=== PATIENT | female | born 1970 | race Caucasian/White ===

== ENCOUNTER → 2018-12-31 | Outpatient (CLI) | payer SELFPAY ==
[2018-12-31 15:38] VITALS: BP 137/86; PULSE 84; RESP 18; TEMP 98.1; BMI 22.9
--- NOTE | 2018-12-31 16:11 | P.HPOB ---
History of Present Illness H&P Date: 12/31/18 Chief Complaint: The patient is here for her routine gynecologic exam and mammogram. This is a 48-year-old with an LMP of 12/07/2018. The patient is without gynecologic complaints. She states her menses are regular every month. She continues to use condoms for control. Review of Systems The patient's weight has been stable over the last year. She denies respiratory , cardiac, or G.I. problems. 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 History of Any Multi-Drug Resistant Organisms: None Reported Past Surgical History: Appendectomy Past Psychological History: Anxiety Smoking Status: Never smoker Past Alcohol Use History: None Reported Past Drug Use History: None Reported Additional History: She has been since 1993. 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 - Past Family History Mother Family Medical History: Dementia, Myocardial Infarction ([place]) Additional Family Medical History / Comment(s): Maternal aunt and cousin had breast cancer. Father Family Medical History: Hypertension Medications and Allergies Home Medications Medication Instructions Recorded Confirmed Type Multivitamin [Multivitamins Adult 1 each PO 12/31/18 History Gummies] Allergies Allergy/AdvReac Type Severity Reaction Status Date / Time No Known Allergies Allergy Unverified 12/31/18 15:33 Exam Vital Signs Temp Pulse Resp BP Pulse Ox 12/31/18 15:35 98.1 F 84 18 137/86 98 Intake and Output 12/31/18 12/31/18 12/31/18 06:59 14:59 22:59 Other: Weight 62.596 kg Height 5'5", weight 138 pounds, BMI 23.0. This is a well-developed well-nourished female who is alert and oriented times 3 in no acute distress. HEENT: Within normal limits. NECK: Supple without mass or thyromegaly. CHEST AND LUNGS: Clear to auscultation. HEART: Regular rate and rhythm. BREASTS: Are without mass or discharge. AXILLARY EXAM: Negative for adenopathy. BACK: Negative for CVA tenderness. ABDOMEN: Soft, nontender, without palpable masses. PELVIC EXAM: Normal external genitalia. Cervix and vagina appear normal. There is no unusual discharge. There is no evidence of prolapse. The uterus is mid to anterior, multiparous nongravid size and nontender. There are no palpable adnexal masses or tenderness. RECTAL EXAM: negative for mass or tenderness and is negative for occult blood. EXTREMITIES: Nontender. IMPRESSION: 1. 48-year-old female with normal gynecologic exam who uses condoms for control. PLAN: 1. Pap smear was performed. 2. Self breast awareness was discussed with the patient. 3. Screening mammogram will be done today. 4. The patient will keep a menstrual calendar and call if she is having menstrual irregularities or problems. 5. We have discussed the HPV vaccination for her daughters. She states she believes they have received this vaccination. 6. I have recommended that she check her blood pressure at home since she does have a blood pressure cuff. I have asked her to do this on a regular basis and to follow-up with Dr. Hart if she has blood pressure elevations. 7. She will return in one year for annual well woman exam.
--- NOTE | 2019-01-02 09:35 | MM ---
Reason for exam: screening (asymptomatic). Last mammogram was performed 2 years and 3 months ago. History: Family history of breast cancer in maternal cousin at age 29 and breast cancer in maternal aunt. Physical Findings: A clinical breast exam by your physician is recommended on an annual basis and results should be correlated with mammographic findings. MG Screening Mammo w CAD Bilateral CC and MLO view(s) were taken. Prior study comparison: September 26, 2016, bilateral MG screening mammo w CAD. September 08, 2015, bilateral MG screening mammo w CAD. The breast tissue is extremely dense which could obscure a lesion on mammography. No significant changes when compared with prior studies. ASSESSMENT: Benign, BI-RAD 2 RECOMMENDATION: Routine screening mammogram of both breasts in 1 year.
== END ==
LOC: WWCWWP 15:22
PROVIDERS: ATTEND Obstetrics & Gynecology
DX: Z12.31 Encounter for screening mammogram for malignant neoplasm of breast (principal)
CPT/HCPCS: 77067

== ENCOUNTER → 2020-06-29 | Outpatient (CLI) | payer OTHER ==
[2020-06-29 15:34] VITALS: BP 127/81; PULSE 103; RESP 12; TEMP 99.2
--- NOTE | 2020-06-29 16:24 | P.HPOB ---
History of Present Illness H&P Date: 06/29/20 Chief Complaint: The patient is here for her routine gynecologic exam and ma mmogram. This is a 50-year-old with an LMP of 05/26/2020. She has been using condoms for control. She states her menstrual periods have gotten slightly less predictable are typically monthly give or take 1 week. She states the menstrual flow is fairly normal when she does have the menstrual period. She denies hot flashes. She is without gynecologic complaints. Review of Systems The patient's weight has been stable over the last year. She denies respiratory, cardiac, or G.I. problems. 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 History of Any Multi-Drug Resistant Organisms: None Reported Past Surgical History: Appendectomy Past Psychological History: Anxiety Smoking Status: Never smoker Past Alcohol Use History: None Reported Past Drug Use History: None Reported Additional History: She is been since 1993. 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 - Past Family History Mother Family Medical History: Dementia, Myocardial Infarction ([place]) Additional Family Medical History / Comment(s): Maternal aunt and cousin had breast cancer. Father Family Medical History: Hypertension, Renal Disease Medications and Allergies Home Medications Medication Instructions Recorded Confirmed Type Multivitamin [Multivitamins Adult 1 each PO DAILY 12/31/18 06/29/20 History Gummies] Aspirin/Omeprazole 1 each PO DAILY 06/29/20 06/29/20 History [Aspirin-Omeprazole Dr 81-40 mg] Allergies Allergy/AdvReac Type Severity Reaction Status Date / Time No Known Allergies Allergy Unverified 12/31/18 15:33 Exam Vital Signs Temp Pulse Resp BP Pulse Ox 06/29/20 15:23 99.2 F 103 H 12 127/81 99 Intake and Output 06/29/20 06/29/20 06/29/20 06:59 14:59 22:59 Other: Weight 62.596 kg Height 5 feet 5 inches, weight 138 pounds, BMI 23.0. This is a well-developed well-nourished female who is alert and oriented times 3 in no acute distress. HEENT: Within normal limits. NECK: Supple without mass or thyromegaly. CHEST AND LUNGS: Clear to auscultation. HEART: Regular rate and rhythm. BREASTS: Are without mass or discharge. AXILLARY EXAM: Negative for adenopathy. BACK: Negative for CVA tenderness. ABDOMEN: Soft, nontender, without palpable masses. PELVIC EXAM: Normal external genitalia. Cervix and vagina appear normal. There is some clear mucus with a small amount of blood in it. She states she feels like she may be getting ready to start a menstrual period. There is no evidence of prolapse. The uterus is anterior, nongravid size and nontender. There are no palpable adnexal masses or tenderness. RECTAL EXAM: Rectovaginal exam is negative for mass or tenderness and is negative for occult blood. EXTREMITIES: Nontender. IMPRESSION: 1. 50-year-old premenopausal female using condoms with normal gynecologic exam. PLAN: 1. Pap smear was deferred since she had a normal one on 12/31/2018. 2. Self breast awareness was discussed with the patient. 3. Screening mammogram will be done today. 4. Osteoporosis prevention was discussed. I have stressed the importance of adequate calcium, vitamin D and regular exercise. Recommended amounts of calcium and vitamin D were also discussed. 5. We have discussed screening colonoscopy. She recently did a cologuard testing through her PCP with the results pending. 6. She was advised to return in one year for her annual well woman exam.
--- NOTE | 2020-06-30 12:01 | MM ---
Reason for exam: screening (asymptomatic). Last mammogram was performed 1 year and 6 months ago. History: Family history of breast cancer in maternal cousin at age 29 and breast cancer in maternal aunt. Physical Findings: A clinical breast exam by your physician is recommended on an annual basis and results should be correlated with mammographic findings. MG Screening Mammo w CAD Bilateral CC and MLO view(s) were taken. Prior study comparison: December 31, 2018, bilateral MG screening mammo w CAD. September 26, 2016, bilateral MG screening mammo w CAD. The breast tissue is heterogeneously dense. This may lower the sensitivity of mammography. No significant changes when compared with prior studies. ASSESSMENT: Benign, BI-RAD 2 RECOMMENDATION: Routine screening mammogram of both breasts in 1 year.
== END | disposition home or self-care (01) ==
LOC: WWCWWP 15:13
PROVIDERS: ATTEND Obstetrics & Gynecology
DX: Z12.31 Encounter for screening mammogram for malignant neoplasm of breast (principal)
CPT/HCPCS: 77067

== ENCOUNTER → 2021-08-02 | Outpatient (CLI) | payer OTHER ==
[2021-08-02 15:27] VITALS: BP 118/77; PULSE 92; RESP 16; TEMP 99.6
--- NOTE | 2021-08-02 16:13 | P.HPOB ---
History of Present Illness H&P Date: 08/02/21 Chief Complaint: The patient is here for her routine gynecologic exam and ma mmogram. This is a 51-year-old with an LMP of December 2020. The patient states her menstrual periods continue to space out and have become unpredictable. She denies any significant hot flashes. She is otherwise without complaints. Review of Systems The patient's weight has been stable over the last year. She denies respiratory, cardiac, or G.I. problems. 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 History of Any Multi-Drug Resistant Organisms: None Reported Past Surgical History: Appendectomy Past Psychological History: Anxiety Smoking Status: Never smoker Past Alcohol Use History: None Reported Past Drug Use History: None Reported Additional History: She has been since 1993. 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 - Past Family History Mother Family Medical History: Dementia, Myocardial Infarction ([place]) Additional Family Medical History / Comment(s): Maternal aunt and cousin had breast cancer. Father Family Medical History: Hypertension, Renal Disease Medications and Allergies Home Medications Medication Instructions Recorded Confirmed Type Multivitamin [Multivitamins Adult 1 each PO DAILY 12/31/18 08/02/21 History Gummies] Cetirizine HCl [Zyrtec] 10 mg PO DAILY 08/02/21 08/02/21 History Montelukast [Singulair] 10 mg PO DAILY 08/02/21 08/02/21 History Allergies Allergy/AdvReac Type Severity Reaction Status Date / Time No Known Allergies Allergy Unverified 08/02/21 15:21 Exam Vital Signs Temp Pulse Resp BP Pulse Ox 08/02/21 15:22 99.6 F 92 16 118/77 98 Intake and Output 08/02/21 08/02/21 08/02/21 06:59 14:59 22:59 Other: Weight 63.049 kg Height 5 feet 4 inches, weight 139 pounds, BMI 23.9. This is a well-developed well-nourished female who is alert and oriented times 3 in no acute distress. HEENT: Within normal limits. NECK: Supple without mass or thyromegaly. CHEST AND LUNGS: Clear to auscultation. HEART: Regular rate and rhythm. BREASTS: Are without mass or discharge. AXILLARY EXAM: Negative for adenopathy. BACK: Negative for CVA tenderness. ABDOMEN: Soft, nontender, without palpable masses. PELVIC EXAM: Normal external genitalia with minimal atrophy. Cervix and vagina appear normal with minimal atrophy. There is no unusual discharge. There is no evidence of prolapse. The uterus is midposition, nongravid size and nontender. There are no palpable adnexal masses or tenderness. RECTAL EXAM: Rectovaginal exam is negative for mass or tenderness and is negative for occult blood. EXTREMITIES: Nontender. IMPRESSION: 1. 51-year-old premenopausal female with recent oligomenorrhea and normal gynecologic exam. PLAN: 1. Pap smear cotest was performed. 2. Self breast awareness was discussed with the patient. We have also discussed symptoms associated with inflammatory breast cancer. 3. Screening mammogram will be done today. 4. Osteoporosis prevention was discussed. I have stressed the importance of ad equate calcium, vitamin D and regular exercise. Recommended amounts of calcium and vitamin D were also discussed. I have recommended that she start taking the recommended amounts of calcium and vitamin D for menopausal females. 5. She will keep a menstrual calendar and call she's having menstrual problems or if she has bleeding after 1 year of amenorrhea. 6. She has completed her Covid vaccination series. 7. For colon and rectal cancer screening she completed a Cologuard testing earlier in 2020. 8. She was advised to return in one year for her annual well woman exam and as needed.
--- NOTE | 2021-08-03 14:08 | MM ---
Reason for exam: screening (asymptomatic). Last mammogram was performed 1 year and 1 month ago. History: Family history of breast cancer in maternal cousin at age 29 and breast cancer in maternal aunt. Physical Findings: A clinical breast exam by your physician is recommended on an annual basis and results should be correlated with mammographic findings. MG Screening Mammo w CAD Bilateral CC and MLO view(s) were taken. Prior study comparison: June 29, 2020, bilateral MG screening mammo w CAD. The breast tissue is extremely dense which could obscure a lesion on mammography. Focal asymmetry left upper outer quadrant. No significant changes when compared with prior studies. ASSESSMENT: Benign, BI-RAD 2 RECOMMENDATION: Routine screening mammogram of both breasts in 1 year.
== END ==
LOC: WWCWWP 15:08
PROVIDERS: ATTEND Obstetrics & Gynecology
DX: Z12.31 Encounter for screening mammogram for malignant neoplasm of breast (principal); Z01.419 Encounter for gynecological examination (general) (routine) without abnormal findings; N91.5 Oligomenorrhea, unspecified; F41.9 Anxiety disorder, unspecified
CPT/HCPCS: 77067

== ENCOUNTER → 2022-08-29 | Outpatient (CLI) | payer OTHER ==
[2022-08-29 15:44] VITALS: BP 118/78; PULSE 88; RESP 17; TEMP 97.8
--- NOTE | 2022-08-29 16:20 | P.HPOB ---
History of Present Illness H&P Date: 08/29/22 Chief Complaint: The patient is here for her routine gynecologic exam and ma mmogram. This is a 52-year-old with an LMP of December 2020. The patient denies any postmenopausal bleeding. She denies any significant hot flashes. She is without gynecologic complaints. Review of Systems The patient's weight has been stable over the last year. She denies respiratory, cardiac, or G.I. problems. 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 History of Any Multi-Drug Resistant Organisms: None Reported Past Surgical History: Appendectomy Past Psychological History: Anxiety Smoking Status: Never smoker Past Alcohol Use History: None Reported Past Drug Use History: None Reported Additional History: She has been since 1993. 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 - Past Family History Mother Family Medical History: Dementia, Myocardial Infarction ([place]) Additional Family Medical History / Comment(s): Maternal aunt and cousin had breast cancer. Father Family Medical History: Hypertension, Renal Disease Medications and Allergies Home Medications Medication Instructions Recorded Confirmed Type Multivitamin [Multivitamins Adult 1 each PO DAILY 12/31/18 08/29/22 History Gummies] Aspirin [Children's Aspirin] 81 mg PO DAILY 08/29/22 08/29/22 History Calcium Carbonate [Calcium] 500 mg PO DAILY 08/29/22 08/29/22 History Cholecalciferol [Vitamin D3 (25 25 mcg PO DAILY 08/29/22 08/29/22 History Mcg = 1000 Iu)] Zinc Citrate [Zinc] 22 mg PO DAILY 08/29/22 08/29/22 History Allergies Allergy/AdvReac Type Severity Reaction Status Date / Time No Known Allergies Allergy Unverified 08/29/22 15:29 Exam Vital Signs Temp Pulse Resp BP Pulse Ox 08/29/22 15:35 97.8 F 88 17 118/78 99 Intake and Output 08/29/22 08/29/22 08/29/22 06:59 14:59 22:59 Other: Weight 63.957 kg Height 5 feet 5 inches, weight 141 pounds, BMI 23.5. This is a well-developed well-nourished female who is alert and oriented times 3 in no acute distress. HEENT: Within normal limits. NECK: Supple without mass or thyromegaly. CHEST AND LUNGS: Clear to auscultation. HEART: Regular rate and rhythm. BREASTS: Are without mass or discharge. AXILLARY EXAM: Negative for adenopathy. BACK: Negative for CVA tenderness. ABDOMEN: Soft, nontender, without palpable masses. PELVIC EXAM: Normal external genitalia. Cervix and vagina appear normal. There is no unusual discharge. There is no evidence of prolapse. The uterus is midposition, nongravid size and nontender. There are no palpable adnexal masses or tenderness. RECTAL EXAM: Rectovaginal exam is negative for mass or tenderness and is negative for occult blood. EXTREMITIES: Nontender. IMPRESSION: 1. 52-year-old menopausal female with normal gynecologic exam. 2. Family history of breast cancer in a maternal aunt and cousin. PLAN: 1. Pap smear was deferred since she had a negative Pap smear cotest on 08/02/2022. 2. Self breast awareness was discussed with the patient. We have also discussed symptoms associated with inflammatory breast cancer. 3. Screening mammogram will be done today. 4. Osteoporosis prevention was discussed. I have stressed the importance of adequate calcium, vitamin D and regular exercise. Recommended amounts of calcium and vitamin D were also discussed. 5. She has completed her Covid vaccination series. With her second motor not shot, she had hives and had to take treatment for hives for 6 months. Per the patient, she was advised by her PCP to not receive additional Covid vaccinations. 6. Colorectal cancer screening has been done with Kayleen through her PCP. She will continue to do colorectal screening through her PCP. 7. She was advised to return in one year for her annual well woman exam.
--- NOTE | 2022-08-30 08:25 | MM ---
Reason for Exam: Screening (asymptomatic). Last mammogram was performed 1 year(s) and 1 month(s) ago. Patient History: Menarche at age 11. First Full-Term at age 28. Maternal cousin had breast cancer, age 29. Maternal aunt had breast cancer. Last menstrual period: Risk Values: Tala 5 year model risk: 1.3%. NCI Lifetime model risk: 10.5%. Prior Study Comparison: 12/31/2018 Bilateral Screening Mammogram, [facility]. 06/29/2020 Bilateral Screening Mammogram, [facility]. 08/02/2021 Bilateral Screening Mammogram, [facility]. Tissue Density: The breast tissue is heterogeneously dense. This may lower the sensitivity of mammography. Findings: Analyzed By CAD. There is no suspicious group of microcalcifications or new suspicious mass in either breast. Overall Assessment: Benign, BI-RAD 2 Management: Screening Mammogram of both breasts in 1 year. A clinical breast exam by your physician is recommended on an annual basis and results should be correlated with mammographic findings. Electronically signed and approved by: Demarcus Saenz M.D. Radiologis
== END ==
LOC: WWCWWP 15:09
PROVIDERS: ATTEND Obstetrics & Gynecology
DX: Z01.419 Encounter for gynecological examination (general) (routine) without abnormal findings (principal); Z12.31 Encounter for screening mammogram for malignant neoplasm of breast; Z80.3 Family history of malignant neoplasm of breast; Z78.0 Asymptomatic menopausal state
CPT/HCPCS: 77067

== ENCOUNTER → 2024-01-22 | Outpatient (CLI) | payer OTHER ==
[2024-01-22 15:29] VITALS: BP 123/72; PULSE 98; RESP 17; TEMP 98
--- NOTE | 2024-01-22 16:21 | P.HPOB ---
History of Present Illness H&P Date: 01/22/24 Chief Complaint: The patient is here for her routine gynecologic exam and ma mmogram. This is a 53-year-old with an LMP of 2020. The patient is without gynecologic complaints and denies any postmenopausal bleeding. Review of Systems The patient's weight has been stable over the last year. She denies respiratory, cardiac, or G.I. problems. 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 History of Any Multi-Drug Resistant Organisms: None Reported Past Surgical History: Appendectomy Past Psychological History: Anxiety Smoking Status: Never smoker Past Alcohol Use History: None Reported Past Drug Use History: None Reported Additional History: She has been since 1993. 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 - Past Family History Mother Family Medical History: Dementia, Myocardial Infarction ([place]) Additional Family Medical History / Comment(s): Maternal aunt and cousin had breast cancer. Father Family Medical History: Hypertension, Renal Disease Medications and Allergies Home Medications Medication Instructions Recorded Confirmed Type Multivitamin [Multivitamins Adult 1 each PO DAILY 12/31/18 01/22/24 History Gummies] Aspirin [Children's Aspirin] 81 mg PO DAILY 08/29/22 01/22/24 History Cholecalciferol [Vitamin D3 (25 25 mcg PO DAILY 08/29/22 01/22/24 History Mcg = 1000 Iu)] Zinc Citrate [Zinc] 22 mg PO DAILY 08/29/22 01/22/24 History Allergies Allergy/AdvReac Type Severity Reaction Status Date / Time No Known Allergies Allergy Unverified 01/22/24 15:03 Exam Vital Signs Temp Pulse Resp BP Pulse Ox 01/22/24 15:07 98 F 98 17 123/72 99 Intake and Output 01/22/24 01/22/24 01/22/24 06:59 14:59 22:59 Other: Weight 63.049 kg Height 5 feet 5 inches, weight 139 pounds, BMI 23.1. This is a well-developed well-nourished female who is alert and oriented times 3 in no acute distress. HEENT: Within normal limits. NECK: Supple without mass or thyromegaly. CHEST AND LUNGS: Clear to auscultation. HEART: Regular rate and rhythm. BREASTS: Are without mass or discharge. AXILLARY EXAM: Negative for adenopathy. BACK: Negative for CVA tenderness. ABDOMEN: Soft, nontender, without palpable masses. PELVIC EXAM: Normal external genitalia with mild atrophy. Cervix and vagina appear normal with mild atrophy. There is no unusual discharge. There is no evidence of prolapse. The uterus is midposition, nongravid size and nontender. There are no palpable adnexal masses or tenderness. RECTAL EXAM: Rectovaginal exam is negative for mass or tenderness and is negative for occult blood. EXTREMITIES: Nontender. IMPRESSION: 1. 53-year-old menopausal female with normal gynecologic exam. 2. Family history of breast cancer in her maternal aunt and cousin. PLAN: 1. Pap smear was deferred since she had a negative Pap smear cotest on 08/02/2021. 2. Self breast awareness was discussed with the patient. We have also discussed symptoms associated with inflammatory breast cancer. 3. Screening mammogram will be done today. 4. Osteoporosis prevention was discussed. I have stressed the importance of adequate calcium, vitamin D and regular exercise. Recommended amounts of calcium and vitamin D were also discussed. 5. She was advised to return in one year for her annual well woman exam.
== END ==
LOC: WWCWWP 14:58
PROVIDERS: ATTEND Obstetrics & Gynecology
DX: Z12.31 Encounter for screening mammogram for malignant neoplasm of breast (principal); Z78.0 Asymptomatic menopausal state; Z80.3 Family history of malignant neoplasm of breast
CPT/HCPCS: 77067

== ENCOUNTER → 2024-01-29 | Outpatient (CLI) | payer OTHER ==
--- NOTE | 2024-01-29 14:21 | MM ---
Reason for Exam: Additional evaluation requested from abnormal screening. Last screening mammogram was performed less than 1 month ago. Patient History: Menarche at age 11. First Full-Term at age 28. Postmenopausal. Patient has history of breast feeding. Maternal cousin had breast cancer, age 29. Maternal aunt had breast cancer. Risk Values: Tala 5 year model risk: 1.3%. NCI Lifetime model risk: 10.3%. Prior Study Comparison: 08/02/2021 Bilateral Screening Mammogram, [facility]. 08/29/2022 Bilateral MG screening mammo w CAD, [facility]. 01/22/2024 Bilateral MG screening mammo w CAD, [facility]. Tissue Density: Left: The breasts are heterogeneously dense, which may obscure small masses. Findings: Analyzed By CAD. Nodular density does not persist. Ultrasound is recommended by protocol under left breast. Overall Assessment: Incomplete: need additional imaging evaluation, BI-RAD 0 Management: Diagnostic Breast Ultrasound of the left breast. . Results were given to the patient verbally at the time of exam. Patient should continue monthly self-breast exams. A clinical breast exam by your physician is recommended on an annual basis. This exam should not preclude additional follow-up of suspicious palpable abnormalities. Note on Tala scores and lifetime risk: 1. A Tala score greater than 3% is considered moderate risk. If this is the case, consider specialist referral to assess eligibility for a risk reducing agent. 2. If overall lifetime risk for the development of breast cancer is 20% or higher, the patient may qualify for future screening with alternating mammogram and breast MRI. Electronically signed and approved by: Demarcus Saenz M.D. Radiologis
--- NOTE | 2024-01-29 14:36 | USB ---
Reason for Exam: Additional evaluation requested from abnormal screening. Patient History: Menarche at age 11. First Full-Term at age 28. Postmenopausal. Patient has history of breast feeding. Maternal cousin had breast cancer, age 29. Maternal aunt had breast cancer. Risk Values: Tala 5 year model risk: 1.3%. NCI Lifetime model risk: 10.3%. Technique: Method: Targeted. Prior Study Comparison: 08/02/2021 Bilateral Screening Mammogram, [facility]. 08/29/2022 Bilateral MG screening mammo w CAD, [facility]. 01/22/2024 Bilateral MG screening mammo w CAD, [facility]. Findings: The upper outer quadrant of the left breast, the axilla of the left breast and the retroareolar of the left breast were scanned. No solid or cystic masses are identified.. Overall Assessment: Negative, BI-RAD 1 Management: Screening Mammogram of both breasts in 1 year. A clinical breast exam by your physician is recommended on an annual basis and results should be correlated with mammographic findings. This exam should not preclude additional follow-up of suspicious palpable abnormalities. Results were given to the patient verbally at the time of exam. Electronically signed and approved by: Demarcus Saenz M.D. Radiologis
== END | disposition home or self-care (01) ==
LOC: RADMAMWWP 13:11
PROVIDERS: ATTEND Obstetrics & Gynecology
DX: R92.332 Mammographic heterogeneous density, left breast (principal); Z80.3 Family history of malignant neoplasm of breast; Z78.0 Asymptomatic menopausal state
CPT/HCPCS: 77065; 76642; G0279; 77061

== ENCOUNTER → 2025-02-03 | Outpatient (CLI) | payer OTHER ==
[2025-02-03 15:40] VITALS: BP 132/84; PULSE 77; RESP 17; TEMP 97.9
--- NOTE | 2025-02-03 16:18 | P.HPOB ---
History of Present Illness H&P Date: 02/03/25 Chief Complaint: The patient is here for her routine gynecologic exam and ma mmogram. This is a 54-year-old G2, P2 with an LMP of 2020. The patient is without gynecologic complaints and denies any postmenopausal bleeding. Review of Systems The patient's weight has been stable over the last year. She denies respiratory, cardiac, or G.I. problems. 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 History of Any Multi-Drug Resistant Organisms: None Reported Past Surgical History: Appendectomy Past Psychological History: Anxiety Smoking Status: Never smoker Past Alcohol Use History: None Reported Past Drug Use History: None Reported Additional History: She has been since 1993. 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 - Past Family History Mother Family Medical History: Dementia, Myocardial Infarction ([place]) Additional Family Medical History / Comment(s): Maternal aunt and cousin had breast cancer. Father Family Medical History: Hypertension, Renal Disease Medications and Allergies Home Medications Medication Instructions Recorded Confirmed Type Aspirin [Children's Aspirin] 81 mg PO DAILY 08/29/22 02/03/25 History Allergies Allergy/AdvReac Type Severity Reaction Status Date / Time No Known Allergies Allergy Unverified 02/03/25 15:37 Exam Vital Signs Temp Pulse Resp BP Pulse Ox 02/03/25 15:38 97.9 F 77 17 132/84 99 Intake and Output 02/03/25 02/03/25 02/03/25 06:59 14:59 22:59 Other: Weight 63.503 kg Height 5 feet 5 inches, weight 140 pounds, BMI 23.3. This is a well-developed well-nourished female who is alert and oriented times 3 in no acute distress. HEENT: Within normal limits. NECK: Supple without mass or thyromegaly. CHEST AND LUNGS: Clear to auscultation. HEART: Regular rate and rhythm. BREASTS: Are without mass or discharge. There is mild breast tenderness with the left breast. She states the left breast has been intermittently tender for some time. AXILLARY EXAM: Negative for adenopathy. BACK: Negative for CVA tenderness. ABDOMEN: Soft, nontender, without palpable masses. PELVIC EXAM: Normal external genitalia with mild atrophy. Cervix and vagina appear normal with mild atrophy. There is no unusual discharge. There is no evidence of prolapse. The uterus is midposition, nongravid size and nontender. There are no palpable adnexal masses or tenderness. RECTAL EXAM: Rectovaginal exam is negative for mass or tenderness and is negative for occult blood. EXTREMITIES: Nontender. IMPRESSION: 1. 54-year-old menopausal female with normal gynecologic exam. 2. Mild left breast tenderness with occasional left breast pain with no palpable masses. PLAN: 1. Pap smear was deferred since she had a negative Pap smear cotest on 08/02/2021. 2. Self breast awareness was discussed with the patient. We have also discussed symptoms associated with inflammatory breast cancer. 3. Screening mammogram will be done today. I have recommended that she try to cut back on caffeinated beverages. She states she does drink a fair amount of coffee every day. 4. Osteoporosis prevention was discussed. I have stressed the importance of adequate calcium, vitamin D and regular exercise. Recommended amounts of calcium and vitamin D were also discussed. 5. She was advised to return in one year for her annual well woman exam.
--- NOTE | 2025-02-04 07:49 | MM ---
Reason for Exam: Screening (asymptomatic). Last mammogram was performed 1 year(s) and 1 month(s) ago. Patient History: Menarche at age 11. First Full-Term at age 28. Postmenopausal. Patient has history of breast feeding. Maternal cousin had breast cancer, age 29. Maternal aunt had breast cancer. Risk Values: Tala 5 year model risk: 1.4%. NCI Lifetime model risk: 10.1%. Prior Study Comparison: 08/29/2022 Bilateral MG screening mammo w CAD, [facility]. 01/22/2024 Bilateral MG screening mammo w CAD, [facility]. 01/29/2024 Left MG 3D work up w/cad , [facility]. Tissue Density: The breasts are heterogeneously dense, which may obscure small masses. Findings: Analyzed By CAD. Accessory fibroglandular tissue at the left axilla is unchanged. There is no suspicious group of microcalcifications or new suspicious mass in either breast. Overall Assessment: Benign, BI-RAD 2 Management: Screening Mammogram of both breasts in 1 year. Further clinical management of patient's left breast pain. Patient should continue monthly self-breast exams. A clinical breast exam by your physician is recommended on an annual basis. This exam should not preclude additional follow-up of suspicious palpable abnormalities. Note on Tala scores and lifetime risk: 1. A Tala score greater than 3% is considered moderate risk. If this is the case, consider specialist referral to assess eligibility for a risk reducing agent. 2. If overall lifetime risk for the development of breast cancer is 20% or higher, the patient may qualify for future screening with alternating mammogram and breast MRI. [facility], , 02/04/2025 7:45 AM. Electronically signed and approved by: Emilee Raygoza M.D. Radiologist
== END ==
LOC: WWCWWP 15:01
PROVIDERS: ATTEND Obstetrics & Gynecology
DX: Z01.419 Encounter for gynecological examination (general) (routine) without abnormal findings (principal); Z12.31 Encounter for screening mammogram for malignant neoplasm of breast; N64.4 Mastodynia
CPT/HCPCS: 77063; 77067